=== PATIENT | female | born 1970 | race Caucasian/White ===

== ENCOUNTER 2019-09-23 21:52 | Emergency (ER) | payer OTHER ==
[~2019-09-23] VITALS: Ht 154.9 cm; Wt 79.4 kg
[~2019-09-23 21:52] MED LIST: ACETAMINOPHEN-1 EAC1 PO; BACTRIM DS TAB1 EACH PO; HYDROCODONE-AP1 EAC6 PO; MAALOX ADVANCE770 ML PO; NAPROSYN500 MG; NOHOMEMEDICATIONS
[2019-09-23] MEDS ORDERED: BACTRIM DS TAB1 EAC1 PO (22:05)
[2019-09-23 22:32] VITALS: BP 141/70
== END 2019-09-23 22:33 | disposition home or self-care (01) ==
LOC: M.ERS 21:52
DX: L03.113 Cellulitis of right upper limb (principal); S40.861A Insect bite (nonvenomous) of right upper arm, initial encounter; R56.9 Unspecified convulsions; F17.210 Nicotine dependence, cigarettes, uncomplicated; Z98.0 Intestinal bypass and anastomosis status; Z91.09 Other allergy status, other than to drugs and biological substances; Z88.8 Allergy status to other drugs, medicaments and biological substances; W57.XXXA Bitten or stung by nonvenomous insect and other nonvenomous arthropods, initial encounter; Y93.84 Activity, sleeping; Y92.89 Other specified places as the place of occurrence of the external cause; Y99.8 Other external cause status

== ENCOUNTER → 2019-12-05 | Outpatient (CLI) | payer OTHER ==
[~2019-12-05] MED LIST changes: +BACTRIM DS TAB1 EAC1 PO
== END ==
LOC: M.MRI 11:22
PROVIDERS: ATTEND Family Medicine
DX: M25.411 Effusion, right shoulder (principal); M25.511 Pain in right shoulder; R60.0 Localized edema

== ENCOUNTER 2020-09-03 08:45 | Inpatient (IN) | payer OTHER ==
[~2020-09-03] VITALS: Ht 154.9 cm; Wt 87.5 kg
[2020-09-03 08:54] VITALS: BP 157/70
[2020-09-03 09:28] LABS: ABSOLUTE BASOPHILS 0.1 thou/uL (0.0-0.2); ABSOLUTE EOSINOPHILS 0.1 thou/uL (0.0-0.7); ABSOLUTE MONOCYTES 0.5 thou/uL (0.0-1.2); ABSOLUTE NEUTROPHILS 6.7 thou/uL (1.6-8.1); BASOPHILS 1.1 %; HEMATOCRIT 49.8 % (37.0-47.0); LYMPHOCYTES 21.1 %; MCH 31.6 pg (26.0-34.0); MCHC 34.2 g/dL (28.0-37.0); MCV 92.4 fL (80.0-100.0); MONOCYTES 5.5 %; MPV 7.8 fl. (7.2-11.1); NUCLEATED RBCS 0 /100WBC; PLATELET COUNT* 264 thou/uL (150-400); POLYS 71.3 %; RBC 5.39 mil/uL (4.20-5.00); RDW-CV 12.9 % (10.5-14.5); WBC 9.3 thou/uL (4.0-11.0)
[2020-09-03 09:35] LABS: CREATININE 1.1 mg/dL (0.6-1.3); POTASSIUM 4.4 mmol/L (3.5-5.1)
[2020-09-03 09:50] LABS: ALBUMIN 3.5 g/dL (3.4-5.0); CK-MB MASS 1.1 ng/mL (<0.5-3.6); TOTAL BILIRUBIN 0.3 mg/dL (<0.1-1.0); TOTAL PROTEIN 8.3 g/dL (6.4-8.2)
[2020-09-03 09:53] LABS: APTT 25.2 Seconds (25.0-31.3); PROTIME 10.3 Seconds (9.20-11.50)
[2020-09-03 12:53] LABS: CHOLESTEROL 222 mg/dL (<200); HDL CHOLESTEROL 26 mg/dL (>40); LDL CHOLESTEROL 140 mg/dL (<100); SERUM ASSESSMENT Clear; TC:HDL 8.5 Ratio (Not establshd); TRIGLYCERIDE 280 mg/dL (<150); VLDL 56 mg/dL (<40)
[2020-09-03 13:45] VITALS: BP 118/51
[2020-09-03 13:53] VITALS: BP 130/66
[2020-09-03 16:00] VITALS: BP 95/46
--- NOTE | 2020-09-03 16:12 | EKG ---
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 : 1970 Requested By: Santi Mathew Order Number: [id number] MD: Albert Wyman Measurements Intervals [place] Rate: 77 P: 30 DE: 171 QRS: 68 QRSD: 90 T: 34 QT: 395 QTc: 448 Interpretive Statements Sinus rhythm ST elevation suggests acute pericarditis Compared to ECG 02/10/2017 14:06:21 ST (T wave) deviation now present Sinus tachycardia no longer present Electronically Signed On 09-03-2020 16:11:55 CDT by Albert Wyman [email or web address] <ELECTRONICALLY SIGNED> By: Albert Wyman MD, [facility] 09/03/20 1611 0909 Albert Wyman MD, [facility] /EPI
--- NOTE | 2020-09-03 17:23 | 2DMMODE ---
[place] [address] 2 D/M-MODE ECHOCARDIOGRAM Name: ELIA NAJERA Room: [address] IN .R.#: [id number] Admission: 09/03/20 Attend Phys: Mook Nieves Discharge: Date of : 74 Date of Service: 09/03/20 1723 Report #: [id number] THIS REPORT FOR: cc: Anne Winkler,Anne Juarez,Albert Antoine MD [facility] ~ APPROVED REPORT Study performed: 09/03/2020 14:37:37 EXAM: Comprehensive 2D, Doppler, and color-flow Echocardiogram Patient Location: In-Patient Room #: 209 Status: routine BSA: 1.74 HR: 64 bpm BP: 130/80 mmHg Rhythm: NSR Other Information Study Quality: Good Indications Chest Pain 2D Dimensions IVSd: 8.71 (7-11mm) LVOT Diam: 19.13 (18-24mm) LVDd: 36.83 mm PWd: 7.96 (7-11mm) Ascending Ao: 25.24 (22-36mm) LVDs: 23.95 (25-40mm) Aortic Root: 31.08 mm Volumes Left Atrial Volume (Systole) LA ESV Index: 15.10 mL/m2 Aortic Valve AoV Peak Palmer.: 1.15 m/s AO Peak Gr.: 5.28 mmHg LVOT Max P.78 mmHg AO Mean Gr.: 3.02 mmHg LVOT Mean P.64 mmHg LVOT Max V: 0.97 m/s AO V2 VTI: 23.86 cm LVOT Mean V: 0.58 m/s PERCY (VTI): 2.55 cm2 LVOT V1 VTI: 21.13 cm AI Saunders: 3.39 m/s2 [place] [address] 2 D/M-MODE ECHOCARDIOGRAM Name: NAJERAELIAORESTES CAUSEY Room: [address] IN M.R.#: [id number] Admission: 09/03/20 Attend Phys: Mook Nieves Discharge: Date of : 74 Date of Service: 09/03/20 1723 Report #: [id number] AI PHT: 356.28 ms Mitral Valve E/A Ratio: 1.10 MV Decel. Time: 194.76 ms MV E Max Palmer.: 0.93 m/s MV PHT: 56.48 ms MVA (PHT): 3.90 cm2 TDI E/Lateral E': 8.45 E/Medial E': 9.30 Medial E' Palmer.: 0.10 m/s Lateral E' Palmer.: 0.11 m/s Pulmonary Valve PV Peak Palmer.: 0.65 m/s PV Peak Gr.: 1.69 mmHg Tricuspid Valve RAP Estimate: 5.00 mmHg TR Peak Gr.: 18.83 mmHg RVSP: 23.00 mmHg PA Pressure: 23.00 mmHg Left Ventricle The left ventricle is normal size. There is normal LV segmental wall motion. There is normal left ventricular wall thickness. Left ventricular systolic function is normal. The left ventricular ejection fraction is within the normal range. LVEF is 55-60%. The left ventricular diastolic function is normal. Right Ventricle The right ventricle is normal size. The right ventricular systolic function is normal. Atria The left atrium size is normal. The right atrium size is normal. Aortic Valve The aortic valve is normal in structure. Mild aortic regurgitation. There is no aortic valvular stenosis. Mitral Valve The mitral valve is normal in structure. Mild mitral regurgitation. No evidence of mitral valve stenosis. [place] [address] 2 D/M-MODE ECHOCARDIOGRAM Name: ELIA NAJERA Room: [address] IN [facility]#: [id number] Admission: 09/03/20 Attend Phys: Mook Nieves Discharge: Date of : 74 Date of Service: 09/03/20 1723 Report #: [id number] The tricuspid valve is normal in structure. Trace tricuspid regurgitation. No pulmonary hypertension. Pulmonic Valve The pulmonary valve is normal in structure. There is no pulmonic valvular regurgitation. Great Vessels The aortic root is normal in size. IVC is normal in size and collapses >50% with inspiration. Pericardium There is no pericardial effusion. <Conclusion> LVEF is 55-60%. Mild aortic regurgitation. Mild mitral regurgitation. <ELECTRONICALLY SIGNED> By: Albert Wyman MD, FACC 09/03/20 172 22 22 Albert Wyman MD, FACC /INF
[2020-09-03 23:37] VITALS: BP 98/51
[2020-09-04] VITALS (16 sets, daily range): BP systolic 127–174; BP diastolic 59–103
[2020-09-04 05:07] LABS: ABSOLUTE BASOPHILS 0.1 thou/uL (0.0-0.2); ABSOLUTE EOSINOPHILS 0.1 thou/uL (0.0-0.7); ABSOLUTE LYMPHOCYTES 2.5 thou/uL (0.8-5.3); ABSOLUTE MONOCYTES 0.6 thou/uL (0.0-1.2); ABSOLUTE NEUTROPHILS 5.7 thou/uL (1.6-8.1); BASOPHILS 0.6 %; EOSINOPHILS 0.8 %; HEMATOCRIT 43.5 % (37.0-47.0); LYMPHOCYTES 28.5 %; MCH 31.4 pg (26.0-34.0); MCHC 33.9 g/dL (28.0-37.0); MCV 92.5 fL (80.0-100.0); MONOCYTES 6.2 %; MPV 8.4 fl. (7.2-11.1); NUCLEATED RBCS 0 /100WBC; PLATELET COUNT* 248 thou/uL (150-400); POLYS 63.9 %; RDW-CV 12.7 % (10.5-14.5); WBC 8.9 thou/uL (4.0-11.0)
[2020-09-04 05:12] LABS: MAGNESIUM 1.9 mg/dL (1.8-2.4); PHOSPHORUS* 3.7 mg/dL (2.5-4.9)
[2020-09-04 05:16] LABS: CALCIUM 8.5 mg/dL (8.5-10.1); CREATININE 0.9 mg/dL (0.6-1.3); POTASSIUM 4.4 mmol/L (3.5-5.1); TROPONIN-I LEVEL 0.33 ng/mL (<0.06)
[2020-09-04 05:19] LABS: HEMOGLOBIN 14.7 gm/dL (12.0-15.0)
--- NOTE | 2020-09-04 12:10 | CARD ---
[address] [place] [address] CARDIAC CATH REPORT Name: ELIA NAJERA Room: [address] ADM IN .R.#: [id number] Admission: 09/03/20 Attend Phys: Jeramy Womack Discharge: Date of : 74 Report #: [id number] THIS REPORT FOR: cc: Anne Winkler Linda J. DO Blick, David R. MD [facility] ~ APPROVED REPORT Study performed: 09/04/2020 09:51:18 Patient Details Patient Status: In-Patient Room #: 209 The patient is a 50 year-old female Event Personnel Albert Wyman Mutual Fund Accountant, Kamila Krishna RN Slope Tender, Justin Winkler RTR Scrub, Clarice Velazco RTR Monitor Procedures Performed Art Access - R femoral artery, Left Heart Cath w/or w/o Coronaries LHC, and aortic root injection. CARLITA Place w/wo Plasty Single RCA , Hemostasis w/ Angioseal Indication Unstable angina , Chest pain Risk Factors Hypercholesterolemia, Hypertension, Diabetes Tobacco History () Admission/Lab Medications/Medications given during procedure Glycoprotein IllbIlla Inhibitors, Heparin Unfract., Heparin IV 6000 units, Aggrastat IV bolus 8.8 ml, Nitroglycerin IC 200 mcg, Effient PO 60 mg Procedure Narrative The patient was brought electively to the Cardiac Catheterization Laboratory and was prepped and draped in a sterile manner. The right femoral was infiltrated with 2% Lidocaine subcutaneous anesthesia. IV conscious sedation was used throughout procedure with appropriate monitoring and was performed in the presence of a registered nurse who was an independent trained [place] [address] CARDIAC CATH REPORT Name: ELIA NAJERA Room: [address] IN [facility]#: [id number] Admission: 09/03/20 Attend Phys: Jeramy Womack Discharge: Date of : 74 Report #: [id number] performing the procedure. A 6F [place] sheath was inserted into the right femoral artery. Coronary angiography was performed using coronary diagnostic catheters. The right coronary system was accessed and visualized with a 6F JR4 catheter. The left coronary system was accessed and visualized with a 6F JL4 catheter. The left ventricle was accessed and visualized with a 6F Pigtail catheter. Left ventricular/Aortic Valve gradient assessed via catheter pullback. Left ventriculogram was performed in [place]ARRAS[place] projection. An aortogram of the ascending aorta was performed. Closure device was deployed with a 6 Fr Angioseal. The patient tolerated the procedure well and there were no complications associated with the procedure. There was no hematoma. Attempted procedure from the right radial artery, but unable to place a sheath in the right radial artery. It was decided to proceed from the right femoral artery. Aortic root injection performed using the pigtail catheter. Intraoperative Conscious Sedation Sedation start time: 10:26 Case end Time: 11:19 Fentanyl 75 mcg Versed 4 mg Fluoro Time: 4.7 minutes Dose: DAP 37412 cGycm2 1034 mGy Contrast Type and Amount: Omnipaque 185 ml Coronary Angiography The patient's coronary anatomy is right dominant. Diagnostic Cath Left Main 0% stenosis LAD 40% mid stenosis Circumflex 40% mid stenosis OM3 60% ostial stenosis in medium sized vessel Right Coronary 99% mid stenosis Left Ventriculography The left ventricular ejection fraction is estimated to be 60-65%. Left ventricular wall motion abnormalities are not present. There is no mitral insufficiency. Moderate aortic insufficiency noted. Hemodynamics The aortic pressure is 147/75 mmHg with a mean of 105 mmHg. The left ventricular pressure is 149/10 mmHg with a mean of mmHg. The left ventricular end diastolic pressure is 20 mmHg. [place] [address] CARDIAC CATH REPORT Name: ELIA NAJERA Room: [address]#: [id number] Admission: 09/03/20 Attend Phys: Jeramy Womack Discharge: Date of : 74 Report #: [id number] across the aortic valve upon pullback. Pullback from the left ventricle to the aorta revealed no gradient across the aortic valve. PCI Technique Lesion Anticoagulation was achieved with Heparin. Aggrastat IV bolus 8.8 ml given. Percutaneous coronary intervention was performed on the mid right coronary artery. The lesion stenosis prior to intervention was 99% with ALEXA 3 flow. A 6F JR 4.0 Guide Catheter was used to engage the right ostium. A BMW 190cm Interventional Guidewire was used to cross the lesion. BALLOON DILATION A Balloon catheter Trek RX 2.5 X 12 was inserted and inflated up to 12.00atm for 13seconds. Repeat angiography revealed the following post-dilatation results: 50% stenosis. Additional Inflation: 18.00atm for 14seconds. STENT DEPLOYMENT A drug-eluting stent Dio RX Stent 3.0X18mm was inserted and inflated up to 9.00atm for 14seconds. Repeat angiography revealed the following post-stent deployment results: 0% stenosis. Additional Inflation: 12.00atm for 9seconds. Final angiography reveals 0 % stenosis with ALEXA 3 flow. Conclusion 1. 99% stenosis of the mid RCA 2. LVEF 60-65% 3. Moderate aortic insufficiency 4. successful placement of a drug eluting stent in the RCA Recommendations Smoking Cessation Medications Administered Prasugrel <ELECTRONICALLY SIGNED> By: Albert Wyman MD, [facility] 09/04/201209 09 09Dazoe Wyman MD, FAC /INF
[2020-09-05 00:41] VITALS: BP 122/54
[2020-09-05 03:48] VITALS: BP 134/61
[2020-09-05 03:58] LABS: HEMATOCRIT 40.6 % (37.0-47.0); MCH 31.8 pg (26.0-34.0); MCHC 34.4 g/dL (28.0-37.0); MCV 92.6 fL (80.0-100.0); RBC 4.39 mil/uL (4.20-5.00); RDW-CV 12.8 % (10.5-14.5); WBC 8.9 thou/uL (4.0-11.0)
[2020-09-05 04:10] LABS: POTASSIUM 4.2 mmol/L (3.5-5.1)
[2020-09-05 04:22] LABS: APTT 24.9 Seconds (25.0-31.3); PROTIME 10.8 Seconds (9.20-11.50)
[2020-09-05 07:46] VITALS: BP 139/67
[2020-09-05] MEDS ORDERED: LIPITOR 40 MG T40 M1 PO (08:46)
[2020-09-05] MEDS ORDERED: LISINOPRIL5 MG PO (08:46)
[2020-09-05] MEDS ORDERED: BAYER CHEWABLE81 MG PO (08:46)
[2020-09-05] MEDS ORDERED: METOPROLOL TART25 MG PO (08:46)
[2020-09-05] MEDS ORDERED: NITROGLYCERIN0.4 MG SUBLING (08:46)
[2020-09-05] MEDS ORDERED: EFFIENT10 MG PO (08:46)
[2020-09-05 10:38] VITALS: BP 174/82
[2020-09-05 10:48] VITALS: BP 174/82
--- NOTE | 2020-09-05 11:06 | EKG ---
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
[2020-09-05] MEDS ORDERED: FARXIGA10 MG PO (11:59)
[2020-09-05] MEDS ORDERED: GLUCOPHAGE1000 MG PO (11:59)
[2020-09-05] MEDS ORDERED: JANUVIA100 MG PO (11:59)
[2020-09-05 12:24] VITALS: BP 174/82
[2020-09-06 02:06] LABS: GLYCOHEMOGLOBIN (HGB A1C) 11.1 % (4.8-5.6)
== END 2020-09-05 12:24 | disposition home or self-care (01) | DRG 246 ==
LOC: M.ERS 08:45 → M.2W 11:12 → M.TBA-ER 11:12 → M.2W 13:47
PROVIDERS: Family Medicine; Internal Medicine; Registered Nurse; ADMIT Internal Medicine; ATTEND Internal Medicine
PROC: 3E033PZ Introduction of Platelet Inhibitor into Peripheral Vein, Percutaneous Approach (ICD-10-PCS; principal; 2020-09-04)
PROC: B2151ZZ Fluoroscopy of Left Heart using Low Osmolar Contrast (ICD-10-PCS; principal; 2020-09-04)
PROC: B2111ZZ Fluoroscopy of Multiple Coronary Arteries using Low Osmolar Contrast (ICD-10-PCS; principal; 2020-09-04)
PROC: 027034Z Dilation of Coronary Artery, One Artery with Drug-eluting Intraluminal Device, Percutaneous Approach (ICD-10-PCS; principal; 2020-09-04)
PROC: 4A023N7 Measurement of Cardiac Sampling and Pressure, Left Heart, Percutaneous Approach (ICD-10-PCS; principal; 2020-09-04)
DX: I21.4 Non-ST elevation (NSTEMI) myocardial infarction (principal); I50.33 Acute on chronic diastolic (congestive) heart failure; I25.110 Atherosclerotic heart disease of native coronary artery with unstable angina pectoris; M79.7 Fibromyalgia; E11.9 Type 2 diabetes mellitus without complications; F17.200 Nicotine dependence, unspecified, uncomplicated; G43.909 Migraine, unspecified, not intractable, without status migrainosus; I35.1 Nonrheumatic aortic (valve) insufficiency; E78.5 Hyperlipidemia, unspecified; Z20.822 Contact with and (suspected) exposure to COVID-19; Z90.49 Acquired absence of other specified parts of digestive tract; Z79.899 Other long term (current) drug therapy; Z88.8 Allergy status to other drugs, medicaments and biological substances; Z82.49 Family history of ischemic heart disease and other diseases of the circulatory system

== ENCOUNTER 2020-12-06 15:58 | Emergency (ER) | payer OTHER ==
[~2020-12-06] VITALS: Ht 154.9 cm; Wt 68.0 kg
[~2020-12-06 15:58] MED LIST changes: +BAYER CHEWABLE81 MG PO; +EFFIENT10 MG PO; +FARXIGA10 MG PO; +GLUCOPHAGE1000 MG PO; +JANUVIA100 MG PO; +LIPITOR 40 MG T40 M1 PO; +LISINOPRIL5 MG PO; +METOPROLOL TART25 MG PO; +NITROGLYCERIN0.4 MG SUBLING
[2020-12-06] MEDS ORDERED: IBUPROFEN 600600 M1 PO (16:56)
[2020-12-06] MEDS ORDERED: CEPHALEXIN500 MG PO (16:56)
[2020-12-06 17:27] VITALS: BP 111/72
== END 2020-12-06 17:30 | disposition home or self-care (01) ==
LOC: M.ERS 15:58
DX: K04.7 Periapical abscess without sinus (principal); F17.210 Nicotine dependence, cigarettes, uncomplicated; Z90.49 Acquired absence of other specified parts of digestive tract; Z98.51 Tubal ligation status; Z88.8 Allergy status to other drugs, medicaments and biological substances